=== PATIENT | female | born 1980 | race Hispanic/Latino ===

== ENCOUNTER 2020-11-02 18:04 | Emergency (ER) | payer OTHER ==
[2020-11-02] MEDS ORDERED: FAMOTIDINE 20MG TAB 20 MG TAB ONE (19:31)
[2020-11-02 19:35] LABS: BASOPHILS % (AUTO) 0.6 % (0.0-5.0); EOSINOPHILS % (AUTO) 2.5 % (0.0-8.0); HEMATOCRIT 41.9 % (36-48); LYMPHOCYTES % (AUTO) 24.4 % (21.0-51.0); MEAN CORPUSCULAR HEMOGLOBIN 26.4 pg (27.0-33.0); MEAN CORPUSCULAR HGB CONC 32.5 g/dL (32.0-36.0); MEAN CORPUSCULAR VOLUME 81.4 fL (79-99); NEUTROPHILS % (AUTO) 66.6 % (40.0-77.0); PLATELET COUNT (AUTO) 292 K/uL (130-400); RED BLOOD CELL COUNT(AUTO) 5.15 MIL/uL (4.00-5.50); WHITE BLOOD COUNT (AUTO) 6.4 K/uL (4.8-10.8)
[2020-11-02 20:05] LABS: ALBUMIN 3.7 g/dL (3.5-5.0); BILIRUBIN,TOTAL 0.4 mg/dL (0.2-1.0); CREATININE 0.6 mg/dL (0.5-1.5); POTASSIUM 4.4 mmol/L (3.5-5.1); TOTAL PROTEIN, SERUM 9.2 g/dL (6.0-8.3)
[2020-11-02] MEDS ORDERED: KETOROLAC TROMETHAMINE 30MG/ML ONE (21:51)
[2020-11-02] MEDS ORDERED: ACETAMINOPHEN 325 MG TAB ONE (23:24)
[2020-11-02] MEDS ORDERED: DIPHENHYDRAMINE HCL 25 MG CAPSULE ONE (23:24)
[2020-11-02 23:30] LABS: CREATININE 0.5 mg/dL (0.5-1.5); POTASSIUM 3.4 mmol/L (3.5-5.1)
== END 2020-11-02 23:53 ==
LOC: EEVIPCON 18:04 → EDH 18:04
DX: K29.00 Acute gastritis without bleeding (principal); I10 Essential (primary) hypertension; Z98.890 Other specified postprocedural states
CPT/HCPCS: 36415; 74021; 80048; 80053; 83690; 85025; 96361; 96374; 99284; J1885; Q0163